=== PATIENT | female | born 1965 | race African-American/Black ===

== ENCOUNTER 2018-08-14 14:57 | Emergency (ER) | payer MEDICAID ==
[~2018-08-14] VITALS: Ht 165.1 cm; Wt 74.8 kg
[2018-08-14 15:13] VITALS: BP 131/67
--- NOTE | 2018-08-14 15:24 | NUR ---
---PT WENT TO [facility] TAKEN BY [facility] PHOTO INSPECTOR BUT PT LEFT DUE TO WAIT TIME THEN WENT TO [facility] . PT STATED SHE CALLED 911 FOR A RIDE TO OUR [facility]
--- NOTE | 2018-08-14 16:10 | NUR ---
PT AMBULATED TO BED 04.
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
[2018-08-14 18:33] LABS: BASOPHILS % (AUTO) 0.3 % (0.0-2.0); EOSINOPHILS # (AUTO) 0.1 K/uL (0-0.4); EOSINOPHILS % (AUTO) 1.4 % (0.0-4.0); HEMATOCRIT 42.8 % (36-48); HEMOGLOBIN 14.1 g/dL (12.0-16.0); LYMPHOCYTES % (AUTO) 36.3 % (20.5-51.1); MEAN CORPUSCULAR HEMOGLOBIN 31 pg (27-31); MEAN CORPUSCULAR HGB CONC 33 g/dL (33-37); MEAN CORPUSCULAR VOLUME 93.3 fL (80-94); MONOCYTES # (AUTO) 0.5 K/uL (0.8-1.0); MONOCYTES % (AUTO) 9.5 % (1.7-9.3); NEUTROPHILS # (AUTO) 2.9 K/uL (1.8-7.7); NEUTROPHILS % (AUTO) 52.5 % (42.2-75.2); PLATELET COUNT (AUTO) 290 K/uL (140-450); RED BLOOD CELL COUNT(AUTO) 4.59 MIL/uL (4.20-5.40); RED CELL DISTRIBUTION WIDTH 15.4 % (11.6-13.7); WHITE BLOOD COUNT (AUTO) 5.5 K/uL (4.8-10.8)
[2018-08-14 18:49] LABS: ANION GAP 15.8 (8-16); ASPARTATE AMINOTRANSFERASE 46 U/L (15-37); CARBON DIOXIDE 26.1 mmol/L (21-32); CHLORIDE 100 mmol/L (98-107); CREATININE 0.7 mg/dL (0.6-1.3); GFR ARICAN-AMERICAN 113 mL/min (>90); GLUCOSE 76 mg/dL (74-106); POTASSIUM 3.9 mmol/L (3.5-5.1); SALICYLATE 3.8 mg/dL (2.8-20.0); SODIUM SERUM 138 mmol/L (136-145); TOTAL BILIRUBIN 0.5 mg/dL (0.0-1.0); UREA NITROGEN, BLOOD 14 mg/dL (7-18)
[2018-08-14 18:50] LABS: ACETAMINOPHEN < 0.5 ug/ml (10-30)
[2018-08-14 19:49] LABS: APPEARANCE,URINE CLEAR (CLEAR); BILIRUBIN,URINE NEGATIVE (NEGATIVE); BLOOD, URINE NEGATIVE (NEGATIVE); COLOR,URINE YELLOW (YELLOW); LEUKOCYTE ESTERASE ,URINE TRACE (NEGATIVE); NITRITE, URINE NEGATIVE (NEGATIVE); UGLUCOSE NEGATIVE (NEGATIVE)
[2018-08-14 19:53] LABS: BARBITURATE, URINE NEG. ng/ml (NEG <=200); BENZODIAZEPINE, URINE NEG. ng/mL (NEG <=200); CANNABINOID, URINE NEG. ng/mL (NEG <=50); COCAINE, URINE NEG. ng/mL (NEG <=300); OPIATE, URINE NEG. ng/mL (NEG <=2000); PHENCYCLIDINE SCREEN,URINE NEG. ng/mL (NEG <=25); RBC,URINE 0-5 /HPF (0-5)
--- NOTE | 2018-08-14 20:06 | NUR ---
SPOKE WITH DR FABIAN FROM [employer]. TO CALL PT VIA [employer].
--- NOTE | 2018-08-14 20:19 | NUR ---
TELEPSYCH, DR. FABIAN, TALKING TO PATIENT VIA REMOTE COMMUNICATION
--- NOTE | 2018-08-14 20:45 | NUR ---
SPOKE WITH PSYCHIATRIST AND DOCTOR STATES PT IS NOT IN ANY STATE OF DANGER AND IS OKAY TO BE DISCHARGED AND ATTEND DETOX PROGRAM.
[2018-08-14] MEDS ORDERED: KETOROLAC 60 MG/2 ML VIAL IM ONE (20:55)
--- NOTE | 2018-08-14 21:25 | NUR ---
PT REPORTS SOME RELIEF POST TORADOL ADMIN. WILL CONTINUE TO MONITOR.
[2018-08-14 21:45] VITALS: BP 114/98
--- NOTE | 2018-08-14 21:45 | NUR ---
Patient discharged with v/s stable. Written and verbal after care instructions given and explained. Patient verbalized understanding. Ambulatory with steady gait. All questions addressed prior to discharge. Advised to follow up with PMD.
--- NOTE | 2018-08-14 21:46 | NUR ---
Patient given written and verbal discharge instructions and verbalizes understanding. Given copies of tests performed during visit. Patient is awake, alert and oriented. Ambulatory with steady gait. Refuses offer of penitentiary placement. Given list of available shelters in surrounding areas.
== END 2018-08-14 21:46 | disposition home or self-care (01) ==
LOC: MED 14:57
DX: F10.239 Alcohol dependence with withdrawal, unspecified (principal); F41.9 Anxiety disorder, unspecified; R45.851 Suicidal ideations; J44.9 Chronic obstructive pulmonary disease, unspecified; Z59.0 Homelessness
CPT/HCPCS: 36415; 80053; 80305; 81001; 82948; 85025; 87086; 93005; 96372; 99284; G0480; G0482; J1885

== ENCOUNTER 2018-10-23 16:57 | Emergency (ER) | payer MEDICAID ==
[~2018-10-23] VITALS: Ht 162.6 cm; Wt 64.4 kg
[2018-10-23 17:05] VITALS: BP 149/92
[2018-10-23] MEDS ORDERED: NACL 0.9% 1,000 ML IV ONE (17:55)
[2018-10-23] MEDS ORDERED: LORazepam 2 MG/ML VIAL IVP ONE (17:55)
[2018-10-23] MEDS ORDERED: KETOROLAC 30 MG/ML VIAL IVP ONE (17:55)
[2018-10-23 18:19] LABS: MEAN CORPUSCULAR HEMOGLOBIN 31 pg (27-31); WHITE BLOOD COUNT (AUTO) 5.2 K/uL (4.8-10.8)
[2018-10-23 18:27] LABS: ANION GAP 20.1 (8-16); CARBON DIOXIDE 25.9 mmol/L (21-32); CHLORIDE 97 mmol/L (98-107); CREATININE 0.9 mg/dL (0.6-1.3); GFR ARICAN-AMERICAN 84 mL/min (>90); GLUCOSE 76 mg/dL (74-106); SODIUM SERUM 140 mmol/L (136-145); UREA NITROGEN, BLOOD 9 mg/dL (7-18)
[2018-10-23 18:27] LABS: BARBITURATE, URINE NEG. ng/ml (NEG <=200); BENZODIAZEPINE, URINE POS. ng/mL (NEG <=200); CANNABINOID, URINE POS. ng/mL (NEG <=50); COCAINE, URINE POS. ng/mL (NEG <=300); OPIATE, URINE NEG. ng/mL (NEG <=2000); PHENCYCLIDINE SCREEN,URINE NEG. ng/mL (NEG <=25)
[2018-10-23 18:31] LABS: HEMATOCRIT 39.8 % (36-48); MEAN CORPUSCULAR HGB CONC 33 g/dL (33-37); MEAN CORPUSCULAR VOLUME 95.2 fL (80-94); PLATELET COUNT (AUTO) 369 K/uL (140-450); RED BLOOD CELL COUNT(AUTO) 4.18 MIL/uL (4.20-5.40); RED CELL DISTRIBUTION WIDTH 16.6 % (11.6-13.7)
[2018-10-23 18:33] LABS: ALBUMIN 3.2 g/dL (3.4-5.0); ASPARTATE AMINOTRANSFERASE 28 U/L (15-37); LIPASE 130 U/L (73-393); TOTAL BILIRUBIN 0.5 mg/dL (0.0-1.0)
[2018-10-23 18:35] LABS: ACETAMINOPHEN < 0.5 ug/ml (10-30); SALICYLATE < 2.8 mg/dL (2.8-20.0)
[2018-10-23 18:50] LABS: LYMPHOCYTES % (MANUAL) 32 % (20-46); MONOCYTES % (MANUAL) 10 % (5-12)
[2018-10-23] MEDS ORDERED: POTASSIUM CHLORIDE 10 MEQ TABER PO ONE (18:50)
[2018-10-23 19:41] VITALS: BP 143/86
== END 2018-10-23 19:41 | disposition home or self-care (01) ==
LOC: MED 16:57
DX: R11.2 Nausea with vomiting, unspecified (principal); R10.13 Epigastric pain; F19.10 Other psychoactive substance abuse, uncomplicated; F10.10 Alcohol abuse, uncomplicated; J44.9 Chronic obstructive pulmonary disease, unspecified; I10 Essential (primary) hypertension; Z90.49 Acquired absence of other specified parts of digestive tract; Y90.9 Presence of alcohol in blood, level not specified
CPT/HCPCS: 36415; 80053; 80305; 83690; 85025; 96374; 96375; 99283; C1758; G0480; G0482; J1885; J2060; J7030; 81002

== ENCOUNTER 2019-10-30 15:36 | Emergency (ER) | payer MEDICAID ==
[~2019-10-30] VITALS: Ht 162.6 cm; Wt 63.5 kg
--- NOTE | 2019-10-30 15:42 | NUR ---
Patient BIBA BLS, transferred to bed [facility]. RN evaluating patient at bedside.
[2019-10-30 15:45] VITALS: BP 160/96
[2019-10-30] MEDS ORDERED: AMMONIA AROMATIC 1 INHL INH ONE (15:50)
--- NOTE | 2019-10-30 16:00 | NUR ---
54 Y/O F BIBA FROM [facility] C/C RIGHT WRIST PAIN. ON ASSESSMENT RIGHT WRIST SWOLLEN, PAIN TO THE TOUCH. PT RESPONSIVE TO PAINFUL STIMULI. DOES NOT RESPOND TO VERBAL STIMULI. UNABLE TO OBTAIN HX,RX,ALLERGIES. PT EUPNIC, NO RESPIRATORY DISTRESS. PUPILS PINPOINT, ERMD NOTIFIED. PLACED IN CHC. SIDE RAIL X2.
--- NOTE | 2019-10-30 16:11 | NUR ---
PT TAKEN TO RAD VIA [facility]
--- NOTE | 2019-10-30 17:39 | NUR ---
PT RESTING IN BED, SIDE RAIL X1
--- NOTE | 2019-10-30 18:00 | NUR ---
APPLIED VOLAR SPLINT TO RIGHT WRIST WITHOUT ANY ISSUES
[2019-10-30 18:14] VITALS: BP 148/90
== END 2019-10-30 18:15 | disposition home or self-care (01) ==
LOC: MED 15:36
DX: S62.101A Fracture of unspecified carpal bone, right wrist, initial encounter for closed fracture (principal); S02.2XXA Fracture of nasal bones, initial encounter for closed fracture; I10 Essential (primary) hypertension; J44.9 Chronic obstructive pulmonary disease, unspecified; X58.XXXA Exposure to other specified factors, initial encounter; Y93.89 Activity, other specified; Y92.89 Other specified places as the place of occurrence of the external cause; Y99.8 Other external cause status
CPT/HCPCS: 29125; 70450; 73110; 99284; Q0092

== ENCOUNTER 2022-03-26 23:40 | Inpatient (IN) | payer MEDICAID ==
[~2022-03-26] VITALS: Ht 165.1 cm; Wt 54.4 kg
[2022-03-26 23:40] VITALS: BP 118/70
--- NOTE | 2022-03-26 23:45 | NUR ---
PT BROUGHT TO BED 3 VIA [facility]
[2022-03-27] MEDS ORDERED: NACL 0.9% 1,000 ML IV ONE
[2022-03-27] MEDS ORDERED: methylPREDNISolone SS 125 MG in WATER STERILE 2 ML IV SCH ×2
[2022-03-27] MEDS ORDERED: MAG SULF 2000 MG/WATER PREMIX 50 ML IV ONE
[2022-03-27 00:29] LABS: BASOPHILS % (AUTO) 0.7 % (0.0-2.0); EOSINOPHILS % (AUTO) 1.1 % (0.0-4.0); HEMATOCRIT 40.6 % (36-48); HEMOGLOBIN 13.5 g/dL (12.0-16.0); LYMPHOCYTES # (AUTO) 1.7 K/uL (2.5-16.5); LYMPHOCYTES % (AUTO) 40.3 % (20.5-51.1); MEAN CORPUSCULAR HEMOGLOBIN 34 pg (27-31); MEAN CORPUSCULAR HGB CONC 33 g/dL (33-37); MEAN CORPUSCULAR VOLUME 101.3 fL (80-94); MONOCYTES # (AUTO) 0.4 K/uL (0.8-1.0); MONOCYTES % (AUTO) 8.5 % (1.7-9.3); NEUTROPHILS % (AUTO) 49.4 % (42.2-75.2); PLATELET COUNT (AUTO) 335 K/uL (140-450); RED BLOOD CELL COUNT(AUTO) 4.01 MIL/uL (4.20-5.40); WHITE BLOOD COUNT (AUTO) 4.1 K/uL (4.8-10.8)
[2022-03-27 00:45] LABS: ALBUMIN 2.8 g/dL (3.4-5.0); ANION GAP 18.1 (8-16); CREATININE 0.9 mg/dL (0.6-1.3); TOTAL BILIRUBIN 0.2 mg/dL (0.0-1.0)
--- NOTE | 2022-03-27 00:48 | NUR ---
COVID AND FLU SWABS COLLECTED AND SENT TO LAB
[2022-03-27 00:57] LABS: POTASSIUM 2.1 mmol/L (3.5-5.1)
[2022-03-27] MEDS ORDERED: KCL 20 MEQ/WATER INJ PREMIX 100 ML IV ONE (01:20)
[2022-03-27 01:35] LABS: BILIRUBIN,URINE NEGATIVE (NEGATIVE); BLOOD, URINE NEGATIVE (NEGATIVE); COLOR,URINE YELLOW (YELLOW); LEUKOCYTE ESTERASE ,URINE TRACE (NEGATIVE); NITRITE, URINE NEGATIVE (NEGATIVE); UGLUCOSE NEGATIVE (NEGATIVE)
[2022-03-27] MEDS ORDERED: MORPHINE SULFATE 4 MG/ML SYR IVP ONE (01:35)
[2022-03-27] MEDS ORDERED: methylPREDNISolone SS 125 MG/2 ML VIAL ONE (01:47)
[2022-03-27] MEDS ORDERED: WATER STERILE 10 ML MC ONE (01:47)
[2022-03-27 02:31] LABS: APPEARANCE,URINE SLIGHTLY HAZY (CLEAR); RBC,URINE 0-5 /HPF (0-5)
[2022-03-27] MEDS ORDERED: ZOLPIDEM 10 MG TAB PO PRN (05:05)
[2022-03-27] MEDS ORDERED: ACETAMINOPHEN 325 MG TAB PO PRN (05:05)
[2022-03-27] MEDS ORDERED: POTASSIUM CHLORIDE 10 MEQ TABER PO PRN (05:05)
[2022-03-27] MEDS ORDERED: DOCUSATE SODIUM 100 MG GELCAP PO PRN (05:05)
[2022-03-27] MEDS ORDERED: LORazepam 2 MG/ML VIAL IVP PRN (05:05)
[2022-03-27] MEDS ORDERED: ONDANSETRON 4 MG/2 ML VIAL IVP PRN (05:05)
[2022-03-27] MEDS ORDERED: MAG SULF 2000 MG/WATER PREMIX 50 ML IV PRN (05:05)
[2022-03-27] MEDS ORDERED: cefTRIAXone 1,000 MG VIAL ONE (06:59)
--- NOTE | 2022-03-27 07:15 | NUR ---
Received report from JO Miller for transfer of care.
--- NOTE | 2022-03-27 08:15 | NUR ---
Patient is resting on bed, respirations even and unlabored. All needs met by staff.
--- NOTE | 2022-03-27 09:07 | NUR ---
Patient will be admitted to care of Dr. Angela. Admited to Telemetry. Will go to room 107-A. Belongings list completed. Report to JO Rogel.
[2022-03-27 09:08] LABS: ANION GAP 11.8 (8-16); CARBON DIOXIDE 24.2 mmol/L (21-32); CREATININE 0.9 mg/dL (0.6-1.3)
--- NOTE | 2022-03-27 09:10 | NUR ---
Chart checked and completed. The patient's care was reviewed and supervised by Deann Ma RN.
[2022-03-27] MEDS ORDERED: LEVE1000 PO (09:30)
[2022-03-27 09:34] VITALS: BP 147/84
--- NOTE | 2022-03-27 09:38 | NUR ---
RECEIVED PATIENT FROM ED VIA WHEELCHAIR. A/O X4. VSS. AFEBRILE. RESPIRATIONS EVEN AND UNLABORED. LEFT ARM WRAPPED IN COURT WRAP. PATIENT DENIES PAIN AT THIS TIME. NO ACUTE DISTRESS NOTED. HL TO RIGHT WRIST INTACT AND PATENT. DR. SIMENTAL AT BEDSIDE TO ASSESS PATIENT. ORIENTED TO ROOM AND CALL LIGHT SYSTEM. PATIENT IN STABLE CONDITION.WILL CONTINUE TO MONITOR FOR SAFETY. Jose BOYD RN.
[2022-03-27] MEDS: MORPHINE SULFATE 2 MG/ML SYR IVP PRN ×3 (11:45→21:07)
--- NOTE | 2022-03-27 14:54 | NUR ---
DR. UMAÑA AT BEDSIDE TO REWRAP PATIENT'S SPLINT ON LEFT ARM. Jose BOYD RN.
[2022-03-27 16:00] VITALS: BP 164/85
[2022-03-27] MEDS: PANTOPRAZOLE 40 MG INJ VIAL IVP SCH (17:12)
--- NOTE | 2022-03-27 19:30 | NUR ---
RECEIVED REPORT FROM DAY SHIFT NURSE EMIL. PATIENT IS A&O X4. PATIENT IS ON ROOM AIR, BREATHING IS NORMAL WITH SYMMETRICAL RISE AND FALL OF CHEST. IV IS A 20G R HAND, NO FLUIDS RUNNING (SALINE LOCKED). PATIENT IS SLEEPING, LYING IN SEMI-FOWLERS POSITION. BED IS IN LOWEST POSITION, WHEELS LOCKED CALL LIGHT IN PLACE. WILL CONTINUE TO OBSERVE PATIENT.
[2022-03-27 20:00] VITALS: BP 115/79
[2022-03-27] MEDS: levETIRAcetam 500 MG TAB PO SCH (21:06)
--- NOTE | 2022-03-27 21:15 | NUR ---
ADMINISTERED 2100 MEDICATION TO PATIENT. PATIENT TOLERATED MEDICATION WELL WITH NO DIFFICULTY SWALLOWING. ALSO ADMINISTERED MORPHINE IVP FOR 6/10 PAIN. PATIENT TOLERATED IVP WELL. PATIENT STATED SHE WAS GOING TO TRY AND GO TO SLEEP. WILL CONTINUE TO OBSERVE PATIENT. Addendum: 03/27/22 at 2311 by Ricco García RN 1999 VITALS WERE OBTAINED; VITALS WERE: BP BP 115/79, HR 82, O2 98%, RR 18, TEMP 96.7.
--- NOTE | 2022-03-27 23:30 | NUR ---
LOOKED IN ON PATIENT. PATIENT WAS SLEEPING, LYING SUPINE. BREATHING WAS NORMAL WITH SYMMETRICAL RISE AND FALL OF CHEST. WILL CONTINUE TO OBSERVE PATIENT.
[2022-03-28] MEDS: MORPHINE SULFATE 2 MG/ML SYR IVP PRN ×3 (01:57→14:19)
--- NOTE | 2022-03-28 02:03 | NUR ---
ADMINISTERED MORPHINE IVP TO PATIENT FOR 6/10 PAIN. PATIENT TOLERATED IVP. PATIENT'S BREATHING WAS NORMAL WITH SYMMETRICAL RISE AND FALL OF CHEST. WILL CONTINUE TO OBSERVE PATIENT.
[2022-03-28 04:00] VITALS: BP 120/82
--- NOTE | 2022-03-28 06:20 | NUR ---
ADMINISTERED IVPB TO PATIENT. IVPB STARTED SUCCESSFULLY WITHOUT ANY ISSUES. PATIENT WAS AWAKE, BREATHING WAS NORMAL WITH SYMMETRICAL RISE AND FALL OF CHEST. WILL CONTINUE TO OBSERVE PATIENT.
--- NOTE | 2022-03-28 06:31 | NUR ---
PATIENT HAS BEEN SCREENED AND CATEGORIZED LOW NUTRITION RISK. PATIENT WILL BE SEEN WITHIN 7 DAYS OF ADMISSION. 03/27/22-04/03/[address]
[2022-03-28 06:50] LABS: BASOPHILS % (AUTO) 0.4 % (0.0-2.0); EOSINOPHILS # (AUTO) 0.1 K/uL (0-0.4); EOSINOPHILS % (AUTO) 0.9 % (0.0-4.0); HEMATOCRIT 34.6 % (36-48); HEMOGLOBIN 11.5 g/dL (12.0-16.0); LYMPHOCYTES # (AUTO) 2.1 K/uL (2.5-16.5); LYMPHOCYTES % (AUTO) 33.5 % (20.5-51.1); MEAN CORPUSCULAR HEMOGLOBIN 34 pg (27-31); MEAN CORPUSCULAR HGB CONC 33 g/dL (33-37); MEAN CORPUSCULAR VOLUME 101.1 fL (80-94); MONOCYTES # (AUTO) 0.5 K/uL (0.8-1.0); MONOCYTES % (AUTO) 7.8 % (1.7-9.3); NEUTROPHILS # (AUTO) 3.6 K/uL (1.8-7.7); NEUTROPHILS % (AUTO) 57.4 % (42.2-75.2); PLATELET COUNT (AUTO) 300 K/uL (140-450); RED BLOOD CELL COUNT(AUTO) 3.42 MIL/uL (4.20-5.40); RED CELL DISTRIBUTION WIDTH 15.1 % (11.6-13.7); WHITE BLOOD COUNT (AUTO) 6.2 K/uL (4.8-10.8)
[2022-03-28 07:04] LABS: ANION GAP 13.3 (8-16); CARBON DIOXIDE 24.7 mmol/L (21-32)
--- NOTE | 2022-03-28 07:45 | NUR ---
ENDORSED TO DAY SHIFT NURSE MAXINE FOR CONTINUITY OF CARE. PATIENT IS STABLE.
[2022-03-28 08:00] VITALS: BP 128/78
[2022-03-28] MEDS: PANTOPRAZOLE 40 MG INJ VIAL IVP SCH (09:48)
[2022-03-28] MEDS: levETIRAcetam 500 MG TAB PO SCH (09:49)
[2022-03-28] MEDS ORDERED: HYDR-5080 PO (11:17)
[2022-03-28] MEDS ORDERED: CALC-1030 PO (11:22)
[2022-03-28 13:20] VITALS: BP 128/78
--- NOTE | 2022-03-28 14:36 | NUR ---
DISCHARGE PATIENT IN STABLE CONDITION, DISCHARGE INSTRUCTION GIVEN, DISCHARGE CONSENT SIGNED. PAIN MEDICATION, IV PUSH MORPHINE 2MG GIVEN BEFORE IV ACCESS AND WRIST BAND REMOVE. ADMISSION TEAM AND DR. SCHMITT AWARE THAT PATIENT PREFERRED PHARMACY IS [facility] IN [place]. [facility] WALK PATIENT OUT THE FACILITY.
== END 2022-03-28 14:41 | disposition home or self-care (01) | DRG 342 ==
LOC: MED 23:40 → MMU 03-27 05:05 → MTU 03-27 07:37
PROVIDERS: ADMIT Family Medicine; ATTEND Family Medicine
PROC: 0PSLXZZ Reposition Left Ulna, External Approach (ICD-10-PCS; principal; 2022-03-27)
PROC: 2W3DX1Z Immobilization of Left Lower Arm using Splint (ICD-10-PCS; 2022-03-27)
DX: S52.202A Unspecified fracture of shaft of left ulna, initial encounter for closed fracture (principal); E44.0 Moderate protein-calorie malnutrition; E87.20 Acidosis, unspecified; R56.9 Unspecified convulsions; Z20.822 Contact with and (suspected) exposure to COVID-19; E87.6 Hypokalemia; N39.0 Urinary tract infection, site not specified; F17.210 Nicotine dependence, cigarettes, uncomplicated; X58.XXXA Exposure to other specified factors, initial encounter; Y93.89 Activity, other specified; Y92.89 Other specified places as the place of occurrence of the external cause; Y99.8 Other external cause status; Z68.20 Body mass index [BMI] 20.0-20.9, adult
CPT/HCPCS: 36415; 73080; 73090; 80048; 80053; 81001; 83605; 83735; 85025; 87040; 87086; 96365; 96366; 96375; 96376; 99285; C9113; J0696; J2270; J2930; J3475; J3480; J7060; Q0092

== ENCOUNTER 2022-04-03 21:29 | Emergency (ER) | payer MEDICAID ==
[~2022-04-03] VITALS: Ht 165.1 cm; Wt 54.9 kg
[~2022-04-03 21:29] MED LIST: CALC-1030 PO; HYDR-5080 PO; LEVE1000 PO
--- NOTE | 2022-04-03 21:40 | NUR ---
PT OFFLOADED TO [facility]
[2022-04-03 21:41] VITALS: BP 136/66
--- NOTE | 2022-04-03 22:00 | NUR ---
PATIENT CALL ED TO BE SEEN BY ERMD. PATIENT LEFT WITHOUT BEING SEEN BY DR. SANDERSON. NO FURTHER CARE PROVIDED FOR PATIENT.
--- NOTE | 2022-04-03 22:05 | NUR ---
CALLED FOR THE SECOND TIME , NO RESPONSE
--- NOTE | 2022-04-03 22:20 | NUR ---
CALLED FOR THE THIRD TIME , NO RESPONSE
== END 2022-04-03 22:00 | disposition left against medical advice (07) ==
LOC: MED 21:29
DX: M79.10 Myalgia, unspecified site (principal); Z53.21 Procedure and treatment not carried out due to patient leaving prior to being seen by health care provider

== ENCOUNTER 2022-04-04 02:24 | Emergency (ER) | payer MEDICAID ==
[~2022-04-04] VITALS: Ht 165.1 cm; Wt 49.9 kg
[2022-04-04 02:35] VITALS: BP 140/81
--- NOTE | 2022-04-04 02:38 | NUR ---
TO LOBBY A/W BED AMBULATORY
--- NOTE | 2022-04-04 04:40 | NUR ---
SEEN AND EXAMINED BY SUKHI WITH ORDERS, CARRIED OUT
[2022-04-04] MEDS ORDERED: ONDANSETRON 4 MG ODT PO ONE (04:45)
[2022-04-04] MEDS ORDERED: HYDROcodone/APAP 5/325 MG 1 TAB TAB PO ONE (04:45)
--- NOTE | 2022-04-04 05:19 | NUR ---
SUGAR TONG SPLINT X1 APPLIED TO L ARM. SLING APPLIED. CMS CHECK [id number].
[2022-04-04 06:15] VITALS: BP 122/79
== END 2022-04-04 06:15 | disposition home or self-care (01) ==
LOC: MED 02:24
DX: S52.202A Unspecified fracture of shaft of left ulna, initial encounter for closed fracture (principal); J44.9 Chronic obstructive pulmonary disease, unspecified; Z79.899 Other long term (current) drug therapy; X58.XXXA Exposure to other specified factors, initial encounter; Y93.89 Activity, other specified; Y92.89 Other specified places as the place of occurrence of the external cause; Y99.8 Other external cause status
CPT/HCPCS: 29105; 99283; Q0162

== ENCOUNTER 2022-12-28 23:44 | Emergency (ER) | payer MEDICAID ==
[~2022-12-28] VITALS: Ht 162.6 cm; Wt 49.9 kg
[2022-12-28 23:44] VITALS: BP 110/72; PULSE 90; RESP 17; TEMP 98.2; O2SAT 97
[2022-12-29 05:21] VITALS: BP 121/70; PULSE 85; RESP 16; TEMP 97.8; O2SAT 94
== END 2022-12-29 05:20 | disposition home or self-care (01) ==
LOC: MED 23:44
DX: R53.1 Weakness (principal); J44.9 Chronic obstructive pulmonary disease, unspecified; Z79.899 Other long term (current) drug therapy
CPT/HCPCS: 99283

== ENCOUNTER 2023-02-18 18:51 | Emergency (ER) | payer MEDICAID ==
[~2023-02-18] VITALS: Ht 162.6 cm; Wt 48.5 kg
[2023-02-18 19:30] VITALS: BP 150/104; PULSE 83; RESP 16; TEMP 97.8; O2SAT 96
[2023-02-18] MEDS ORDERED: KETOROLAC 60 MG/2 ML VIAL IM ONE (20:35)
[2023-02-18] MEDS ORDERED: AZIT250T4 PO (21:15)
[2023-02-18] MEDS ORDERED: IBUP-2213 PO (21:15)
[2023-02-18] MEDS ORDERED: MUC600 PO (21:15)
[2023-02-18] MEDS ORDERED: PRED50TA2 PO (21:15)
[2023-02-18 21:36] VITALS: BP 138/95; PULSE 83; RESP 16; TEMP 97.8; O2SAT 96
== END 2023-02-18 21:36 | disposition home or self-care (01) ==
LOC: MED 18:51
DX: J18.9 Pneumonia, unspecified organism (principal); J44.9 Chronic obstructive pulmonary disease, unspecified; K21.9 Gastro-esophageal reflux disease without esophagitis; F17.210 Nicotine dependence, cigarettes, uncomplicated; Z86.69 Personal history of other diseases of the nervous system and sense organs; Z79.899 Other long term (current) drug therapy
CPT/HCPCS: 96372; 99283; J1885

== ENCOUNTER 2023-09-07 19:02 | Emergency (ER) | payer MEDICAID, OTHER ==
[~2023-09-07] VITALS: Ht 162.6 cm; Wt 49.9 kg
[~2023-09-07 19:02] MED LIST changes: +AZIT250T4 PO; +IBUP-2213 PO; +MUC600 PO; +PRED50TA2 PO
[2023-09-07 19:16] VITALS: BP 178/118; PULSE 94; RESP 18; TEMP 97.6; O2SAT 96
[2023-09-07] MEDS ORDERED: HYD2.5O TP (21:34)
[2023-09-07] MEDS ORDERED: ACET-8905 PO (21:34)
[2023-09-07] MEDS: HYDROcodone/APAP 5/325 MG 1 TAB TAB PO ONE (21:43)
== END 2023-09-07 21:42 | disposition home or self-care (01) ==
LOC: MED 19:02
DX: S52.124A Nondisplaced fracture of head of right radius, initial encounter for closed fracture (principal); R21 Rash and other nonspecific skin eruption; J44.9 Chronic obstructive pulmonary disease, unspecified; K21.9 Gastro-esophageal reflux disease without esophagitis; X58.XXXA Exposure to other specified factors, initial encounter; Y93.89 Activity, other specified; Y92.89 Other specified places as the place of occurrence of the external cause; Y99.8 Other external cause status
CPT/HCPCS: 73080; 99283

== ENCOUNTER 2023-12-14 20:29 | Emergency (ER) | payer OTHER ==
[~2023-12-14] VITALS: Ht 167.6 cm; Wt 48.5 kg
[~2023-12-14 20:29] MED LIST changes: +ACET-8905 PO; +HYD2.5O TP
[2023-12-14 20:33] VITALS: BP 142/98; PULSE 78; RESP 14; TEMP 97.6; O2SAT 98
== END 2023-12-15 03:17 | disposition left against medical advice (07) ==
LOC: MED 20:29
DX: R10.9 Unspecified abdominal pain (principal); R11.2 Nausea with vomiting, unspecified; F10.10 Alcohol abuse, uncomplicated; Z53.21 Procedure and treatment not carried out due to patient leaving prior to being seen by health care provider; Y90.9 Presence of alcohol in blood, level not specified